=== PATIENT | male | born 1980 | race Caucasian/White ===

== ENCOUNTER 2017-01-23 20:27 | Inpatient (IN) | payer BC ==
[~2017-01-23] VITALS: Ht 185.4 cm; Wt 108.9 kg
--- NOTE | 2017-01-23 20:40 | NUR ---
PATIENT WALKED INTO ER C/O 04/27 CP DESCRIBING PAIN CONSTANT PRESSURE NON RADIATING X2HRS WITH ABDOMINAL PAIN X3 DAYS 05/28 PRESSURE TYPE OF PAIN... pt is alert, oriented x 4, no resp distress noted or reported upon assessment... md at bedside...
[2017-01-23 20:58] LABS: BASOPHILS # (AUTO) 0.1 K/uL (0.0-8.0); BASOPHILS % (AUTO) 0.7 % (0.0-2.0); EOSINOPHILS # (AUTO) 0.7 K/uL (0.0-0.7); EOSINOPHILS % (AUTO) 8.6 % (0.0-7.0); HEMATOCRIT 49.9 % (40-50); HEMOGLOBIN 17.5 G/DL (14.0-18.0); LYMPHOCYTES # (AUTO) 2.6 K/UL (0.8-4.8); LYMPHOCYTES % (AUTO) 32.2 % (20.5-51.5); MEAN CORPUSCULAR HEMOGLOBIN 31.3 UUG (27.0-31.0); MEAN CORPUSCULAR HGB CONC 35 g/dL (32.0-37.0); MEAN CORPUSCULAR VOLUME 89.1 FL (82.0-92.0); MONOCYTES # (AUTO) 0.6 K/UL (0.1-1.30); NEUTROPHILS # (AUTO) 4.2 K/UL (1.8-8.9); NEUTROPHILS % (AUTO) 51.5 % (38.5-71.5); PLATELET COUNT (AUTO) 249 K/UL (150-450); RED CELL DISTRIBUTION WIDTH 12.3 % (11.5-14.5); WHITE BLOOD COUNT (AUTO) 8.2 K/UL (4.0-11.2)
[2017-01-23] MEDS ORDERED: NITROGLYCERIN OINT 1 GM PACKET TP ONE ×2 (21:00→21:53)
[2017-01-23] MEDS ORDERED: ASPIRIN 81 MG TAB.CHEW PO ONE (21:00)
[2017-01-23 21:16] LABS: CALCIUM 9.3 mg/dL (8.5-10.1); CREATININE 0.9 mg/dL (0.6-1.3); POTASSIUM 4.3 mmol/L (3.5-5.1)
[2017-01-23 21:29] LABS: BILIRUBIN,DIRECT 0.1 mg/dL (0.0-0.2); BILIRUBIN,TOTAL 0.4 mg/dL (0.2-1.0); TOTAL PROTEIN, SERUM 7.7 g/dL (6.4-8.2)
[2017-01-23] MEDS ORDERED: ASPIRIN 81 MG TAB.CHEW ONE (21:53)
[2017-01-23] MEDS ORDERED: MORPHINE SULFATE 4 MG/1 ML DISP.SYRIN IV ONE (22:00)
[2017-01-23] MEDS ORDERED: ONDANSETRON IV *ER 4 MG/2 ML VIAL IV ONE (22:00)
[2017-01-23] MEDS ORDERED: MORPHINE SULFATE 4 MG/1 ML DISP.SYRIN ONE (22:17)
[2017-01-23] MEDS ORDERED: ONDANSETRON 4 MG/2 ML VIAL ONE (22:17)
--- NOTE | 2017-01-23 23:12 | NUR ---
Pt. admitted to Tele, under care of Dr. Price, Belongs List completed, pt is alert, oriented x4, no resp distress noted or reported upon transfer assessment... pt transferred via gurney...
[2017-01-23 23:27] VITALS: BP 118/74
[2017-01-23] MEDS ORDERED: ACETAMINOPHEN 325 MG TABLET PO PRN (23:30)
[2017-01-23] MEDS ORDERED: HYDROCODONE/APAP 5-325MG TABLET PO PRN (23:30)
[2017-01-23] MEDS ORDERED: ZOLPIDEM 5 MG TABLET PO PRN (23:30)
[2017-01-23] MEDS ORDERED: ONDANSETRON 4 MG/2 ML VIAL IV PRN (23:30)
--- NOTE | 2017-01-23 23:49 | NUR ---
ADMITTED.MALE WITH CHIEF COMPLAINT OF CHEST PAIN,ALERT,COOPERATIVE NO CHEST PAIN BUT COMPLAINED OF HEADACHE ,REFUSED TYLENOL AND NORCO.HUNGRY,REFUSED HOSPITAL SANDWICH WANTED FOOD FROM OUTSIDE,FRIEND WILL BRING FOOD..TELEMETRY SINUS BRITNI.ORIENTED TO ROOM AND MADE COMFORTABLE.
[2017-01-24 04:00] VITALS: BP 101/59
--- NOTE | 2017-01-24 05:59 | NUR ---
Patient slept well, in no acute distress, tele sinus stefan. Patient c/o of pain located in the crease where the left breast and the chest meets, refused pain medication at this time. Call light within reach, will continue to monitor.
[2017-01-24] MEDS ORDERED: PANTOPRAZOLE SODIUM 40 MG TABLET.DR PO SCH (07:00)
[2017-01-24 07:40] LABS: BASOPHILS # (AUTO) 0.1 K/uL (0.0-8.0); BASOPHILS % (AUTO) 0.7 % (0.0-2.0); EOSINOPHILS # (AUTO) 0.8 K/uL (0.0-0.7); EOSINOPHILS % (AUTO) 11.1 % (0.0-7.0); HEMATOCRIT 49.4 % (40-50); HEMOGLOBIN 17.4 G/DL (14.0-18.0); LYMPHOCYTES # (AUTO) 2.4 K/UL (0.8-4.8); LYMPHOCYTES % (AUTO) 33.4 % (20.5-51.5); MEAN CORPUSCULAR HEMOGLOBIN 31.4 UUG (27.0-31.0); MEAN CORPUSCULAR HGB CONC 35 g/dL (32.0-37.0); MONOCYTES # (AUTO) 0.5 K/UL (0.1-1.30); NEUTROPHILS # (AUTO) 3.5 K/UL (1.8-8.9); NEUTROPHILS % (AUTO) 47.8 % (38.5-71.5); PLATELET COUNT (AUTO) 219 K/UL (150-450); RED BLOOD CELL COUNT(AUTO) 5.54 MIL/UL (4.7-6.1); RED CELL DISTRIBUTION WIDTH 11.9 % (11.5-14.5); WHITE BLOOD COUNT (AUTO) 7.3 K/UL (4.0-11.2)
[2017-01-24 07:42] LABS: THYROID STIMULATING HORMONE 10.951 mIU/mL (0.358-3.740)
[2017-01-24 07:45] LABS: ALBUMIN 3.5 g/dL (3.4-5.0); BILIRUBIN,TOTAL 0.7 mg/dL (0.2-1.0); CALCIUM 9.2 mg/dL (8.5-10.1); MAGNESIUM 2.1 mg/dL (1.8-2.4); PHOSPHOROUS 3.8 mg/dL (2.5-4.9); POTASSIUM 4.1 mmol/L (3.5-5.1); TOTAL PROTEIN, SERUM 6.8 g/dL (6.4-8.2)
--- NOTE | 2017-01-24 08:00 | NUR ---
RECEIVED PATIENT IN BED AWAKE ALERT AND ORIENTED DENIES CHEST PAIN AT THIS TIME.HE IS ON ROOM AIR WITH NO SHORTNESS OF BREATH.MADE COMFORTABLE AND WILL CONTINUE TO OBSERVE.
[2017-01-24] MEDS ORDERED: ASPIRIN 325 MG TABLET PO SCH (09:00)
[2017-01-24 10:25] LABS: *BILIRUBIN,URIN NEGATIVE (NEGATIVE); *BLOOD, URINE NEGATIVE (NEGATIVE); *CLARITY,URINE CLEAR (CLEAR); *COLOR,URINE YELLOW (YELLOW); *KETONES,URINE NEGATIVE (NEGATIVE); *PROTEIN,URINE TRACE (NEGATIVE); LEUKOCYTE ESTERASE ,URINE NEGATIVE (NEGATIVE); NITRITE, URINE NEGATIVE (NEGATIVE); UGLUCOSE NEGATIVE (NEGATIVE)
[2017-01-24 11:17] VITALS: BP 115/67
[2017-01-24 11:31] LABS: BACTERIA,URINE NONE SEEN /HPF (NONE SEEN); SQUAMOUS EPITHELIAL CELL,UR FEW /HPF (NONE SEEN); WBC,URINE 0-3 /HPF (0-3)
--- NOTE | 2017-01-24 12:00 | NUR ---
2 D ECHO COMPLETED AND EF IS 65%.
[2017-01-24 15:32] VITALS: BP 114/76
--- NOTE | 2017-01-24 17:26 | NUR ---
PATIENT IS ANXIOUS AND WANTS TO GO HOME WANDERING WHEN THE [employer] WILL BE HERE TO SEE HIM SO I CALLED [facility] AND ASKED HER IF SHE WILL DISCHARGE THE PATIENT BUT SHE STATED THAT PATIENT COULD GO HOME AGAINST [facility] IF HE DOES NOT WANT TO WAIT TO SEE THE [employer] BUT I INFORMED PATIENT AND HE STATED WILL WAIT A LITTLE LONGER FOR THE [employer].
--- NOTE | 2017-01-24 18:21 | NUR ---
PATIENT IS UP AND AMBULATORY IN THE HALLWAY STILL ANXIOUS AND WORRIED ABOUT PERSONAL PROBLEMS AND ISSUES STILL STATING THAT HE HAS TENDERNESS ON HIS LEFT BELOW HIS BREAST BUT REFUSES TO TAKE ANY PAIN MEDICATIONS AT THIS TIME
[2017-01-24] MEDS ORDERED: ATORVASTATIN 10 MG TABLET PO SCH (21:00)
[2017-01-24] MEDS ORDERED: SIMV20TA2 PO (21:58)
[2017-01-24] MEDS ORDERED: LEVO25TA9 PO (21:58)
--- NOTE | 2017-01-24 22:18 | NUR ---
Patient discharged per MD order. D/C instructions given to patient. Patient verbalized understanding. Patient denies chest pain, discomfort upon discharge. VS stable. Patient left facility in stable condition, all needs attended.
[2017-01-25] MEDS ORDERED: LEVOTHYROXINE SODIUM 25 MCG TABLET PO SCH (07:00)
== END 2017-01-24 22:19 | disposition home or self-care (01) | DRG 206 ==
LOC: ER 20:27 → TELE 22:27
PROVIDERS: ADMIT Internal Medicine; ATTEND Internal Medicine
DX: M94.0 Chondrocostal junction syndrome [Tietze] (principal); E03.9 Hypothyroidism, unspecified; E66.9 Obesity, unspecified; E78.5 Hyperlipidemia, unspecified; F17.210 Nicotine dependence, cigarettes, uncomplicated; F41.9 Anxiety disorder, unspecified; K21.9 Gastro-esophageal reflux disease without esophagitis; K29.70 Gastritis, unspecified, without bleeding; Z68.31 Body mass index [BMI] 31.0-31.9, adult; R74.0 Nonspecific elevation of levels of transaminase and lactic acid dehydrogenase [LDH]; F32.9 Major depressive disorder, single episode, unspecified; Z82.49 Family history of ischemic heart disease and other diseases of the circulatory system
CPT/HCPCS: 36415; 70030-TC; 71010; 83735; 84100; 84443; 85025; 85730; 87086; 93005; 93307; A4663; J2270; J2405